=== PATIENT | female | born 1955 | race Caucasian/White ===

== ENCOUNTER 2016-04-27 13:30 | Emergency (ER) | payer OTHER ==
[2016-04-27] MEDS ORDERED: ASPIRIN 81 MG CHEW TAB ONE (15:35)
[2016-04-27] MEDS ORDERED: SODIUM CHLORIDE 0.9% 100 ML IV ONE (16:23)
[2016-04-27] MEDS ORDERED: CEFTRIAXONE 1 GM VIAL ONE (16:23)
== END 2016-04-27 17:26 | disposition home or self-care (01) ==
LOC: ER 13:30
DX: I25.10 Atherosclerotic heart disease of native coronary artery without angina pectoris (principal); N30.00 Acute cystitis without hematuria; R00.2 Palpitations; Z87.891 Personal history of nicotine dependence
CPT/HCPCS: 36415; 71010; 80053; 82550; 83735; 84484; 85025; 85610; 85730; 93005; 96365; 99285; J0696